=== PATIENT | male | born 1930 | race Caucasian/White ===

== ENCOUNTER → 2016-08-22 | Outpatient (CLI) | payer MEDICARE ==
[~2016-08-22] MED LIST: ASPIR-TRIN325 M1 PO; CIPRO500 MG PO; CIPROFLOXACIN500 M1 PO; DITROPAN5 MG PO; FLOMAX0.4 MG PO; FLONASE16 G1 BOTH NARES; Flomax PO; NORVASC5 MG PO; PLAVIX75 MG PO; TRAMADOL HCL50 MG PO
== END | disposition home or self-care (01) ==
LOC: CDC 10:22
DX: I44.4 Left anterior fascicular block (principal); I45.10 Unspecified right bundle-branch block; N32.9 Bladder disorder, unspecified; N40.0 Benign prostatic hyperplasia without lower urinary tract symptoms
CPT/HCPCS: 93000

== ENCOUNTER 2016-11-04 08:25 | Emergency (ER) | payer OTHER, MEDICARE ==
[~2016-11-04] VITALS: Ht 182.9 cm; Wt 93.3 kg
[2016-11-04 09:08] LABS: BASOPHIL COUNT 0.1 K/uL (0-0.1); EOSINOPHIL (%) 3.2 % (0-5); EOSINOPHIL COUNT 0.3 K/uL (0-0.3); HEMATOCRIT 44.3 % (38.0-50.0); IMMATURE GRANULOCYTE (%) 0.3 % (0.0-0.7); INSTRUMENT ABS NEUTROPHIL CT 5.1 K/uL; LYMPHOCYTE COUNT 1.4 K/uL (1.0-2.8); MCH 30.8 PG (29.0-34.0); MCHC 33.6 G/DL (30.0-36.0); MCV 91.5 FL (86-99); MEAN PLAT.VOLUME 10.8 uM^3 (9.0-12.4); MONOCYTE (%) 13.8 % (3-12); MONOCYTE COUNT 1.1 K/uL (0-0.8); NEUTROPHIL (%) 64.4 % (45-76); NEUTROPHIL COUNT 5.1 K/uL (1.8-6.4); PLATELET COUNT 179 K/uL (156-360); RBC DIS.WIDTH-CV 12.2 % (11.8-14.6); RBC DIS.WIDTH-SD 40.7 % (39-53); RED BLOOD COUNT 4.84 M/uL (4.00-5.50); WHITE BLOOD COUNT 7.8 K/uL (4.1-10.2)
[2016-11-04] MEDS ORDERED: PROSCAR5 MG PO (09:27)
[2016-11-04] MEDS ORDERED: CLARITHROMYCIN500 MG PO (09:29)
[2016-11-04] MEDS ORDERED: PROMETHAZI6.25 MG/5 PO (09:33)
[2016-11-04 09:38] LABS: ANION GAP 7 MEQ/L (2-14); CHLORIDE 105 MEQ/L (99-109); SAMPLE HEMOLYSIS CHECK 0; SAMPLE ICTERIC CHECK 0; SAMPLE LIPEMIA CHECK 0; SODIUM 139 MEQ/L (136-147)
[2016-11-04 09:44] LABS: GFR ESTIMATE (CALCULATED) > 59 mL/min/; GLUCOSE 115 mg/dL (70-99); UREA NITROGEN (BUN) 15 mg/dL (9-23)
[2016-11-04 09:47] LABS: TROP-I INTERPRETATION NEGATIVE; TROPONIN-I < 0.01 ng/mL (0.0-0.30)
[2016-11-04] MEDS ORDERED: ZITHROMAX Z-PA250 MG PO (11:56)
[2016-11-04 12:04] VITALS: BP 146/87
== END 2016-11-04 12:06 | disposition home or self-care (01) ==
LOC: EME 08:25
PROVIDERS: Emergency Medicine
DX: J40 Bronchitis, not specified as acute or chronic (principal); R07.89 Other chest pain
CPT/HCPCS: 71010; 80048; 84484; 85025; 93005; 94640; 99281; 99285

== ENCOUNTER 2017-11-08 11:32 | Emergency (ER) | payer OTHER, MEDICARE ==
[~2017-11-08] VITALS: Ht 182.9 cm; Wt 91.2 kg
[~2017-11-08 11:32] MED LIST changes: +CLARITHROMYCIN500 MG PO; +PROMETHAZI6.25 MG/5 PO; +PROSCAR5 MG PO; +ZITHROMAX Z-PA250 MG PO
[2017-11-08 12:26] LABS: BASOPHIL (%) 0.3 % (0-1); EOSINOPHIL (%) 1.3 % (0-5); EOSINOPHIL COUNT 0.1 K/uL (0-0.3); HEMATOCRIT 46.7 % (38.0-50.0); HEMOGLOBIN 15.9 G/DL (12.5-16.6); IMMATURE GRANULOCYTE (%) 1.4 % (0.0-0.7); LYMPHOCYTE (%) 16.7 % (15-42); LYMPHOCYTE COUNT 1.5 K/uL (1.0-2.8); MCH 31.4 PG (29.0-34.0); MCV 92.1 FL (86-99); MONOCYTE (%) 9.3 % (3-12); MONOCYTE COUNT 0.9 K/uL (0-0.8); NEUTROPHIL COUNT 6.5 K/uL (1.8-6.4); RBC DIS.WIDTH-CV 11.9 % (11.8-14.6); RBC DIS.WIDTH-SD 39.9 % (39-53); RED BLOOD COUNT 5.07 M/uL (4.00-5.50); WHITE BLOOD COUNT 9.1 K/uL (4.1-10.2)
[2017-11-08 12:40] LABS: CHLORIDE 102 mEq/L (99-109); POTASSIUM 4.5 mEq/L (3.7-5.4); SODIUM 136 mEq/L (136-147)
[2017-11-08 12:41] LABS: GLUCOSE 337 mg/dL (70-99)
[2017-11-08 12:45] LABS: CREATININE 0.9 mg/dL (0.6-1.3); GFR ESTIMATE (CALCULATED) > 59 mL/min/ (58.99-99999)
[2017-11-08 12:46] LABS: UREA NITROGEN (BUN) 21 mg/dL (9-23)
[2017-11-08 12:49] LABS: TROP-I INTERPRETATION NEGATIVE; TROPONIN-I 0.01 ng/mL (0.0-0.30)
[2017-11-08 13:20] LABS: PLATELET COUNT 83 K/uL (156-360)
[2017-11-08 13:21] LABS: PLAT.SUFFICIENCY DECREASED
[2017-11-08] MEDS ORDERED: MECLIZINE HCL25 MG PO (14:12)
[2017-11-08 14:27] VITALS: BP 156/94
== END 2017-11-08 14:29 | disposition home or self-care (01) ==
LOC: EME 11:32
PROVIDERS: Emergency Medicine
DX: R42 Dizziness and giddiness (principal); N40.0 Benign prostatic hyperplasia without lower urinary tract symptoms; Z91.81 History of falling; Z90.49 Acquired absence of other specified parts of digestive tract
CPT/HCPCS: 70450; 71045; 80048; 84484; 85025; 93005; 99281; 99285; J7030